=== PATIENT | male | born 1995 ===

== ENCOUNTER 2019-10-24 09:14 | Emergency (ER) | payer SELFPAY ==
[~2019-10-24] VITALS: Ht 167.6 cm; Wt 68.0 kg
[~2019-10-24 09:14] MED LIST: CODACE30 PO; RXCODACET PO
[2019-10-24] MEDS ORDERED: PERM5TC TOP (09:32)
== END 2019-10-24 09:35 | disposition home or self-care (01) ==
LOC: ER 09:14
DX: B88.8 Other specified infestations (principal); Z91.038 Other insect allergy status; B86 Scabies; F15.99 Other stimulant use, unspecified with unspecified stimulant-induced disorder; F17.200 Nicotine dependence, unspecified, uncomplicated
CPT/HCPCS: 99282

== ENCOUNTER 2019-10-25 16:40 | Emergency (ER) | payer SELFPAY ==
[~2019-10-25] VITALS: Ht 170.2 cm; Wt 61.2 kg
[~2019-10-25 16:40] MED LIST changes: +PERM5TC TOP
== END 2019-10-25 21:10 | disposition home or self-care (01) ==
LOC: ER 16:40
DX: Z71.1 Person with feared health complaint in whom no diagnosis is made (principal); F17.200 Nicotine dependence, unspecified, uncomplicated
CPT/HCPCS: 99282